=== PATIENT | female | born 1995 | race Caucasian/White ===

== ENCOUNTER 2018-01-21 11:28 | Emergency (ER) | payer MEDICAID, SELFPAY ==
[2018-01-21] VITALS (11 sets, daily range): BP systolic 101–132; BP diastolic 61–75; PULSE 73–96; RESP 11–18; TEMP 37–37.1; O2SAT 95–100
--- NOTE | 2018-01-21 11:42 | ED.GENADUL ---
Disposition Clinical Impression: Dizziness, Nausea, First trimester Disposition: HOME Condition: Good Instructions: Acute Nausea and Vomiting (ED), Dizziness (ED) Additional Instructions: Drink plenty of fluids and get plenty of rest. Be sure to eat carbs with protein such as peanut butter and toast. Take the anti-nausea medicine as needed and directed. Be sure to wait 20-30 minutes after you take the medication before eating to allow the medication time to work. Follow-up with your scheduled appointment for your first OB ultrasound on 02/01/18 at 7:00 AM in the radiology department. Be sure to arrive 15 minutes early. Follow-up with your scheduled appointment in women's wellness on 02/15/18 at 9:20 AM. Return to the emergency department with any worsening or new concerning symptoms. Prescriptions: Doxylamine/Pyridoxine HCl [Anson Jasmine 10-10 mg Tablet] 1 each PO DIRECTED PRN #12 tablet. PRN Reason: Forms: Work Release Medical Decision Making - Lab Data test positive Laboratory Tests 01/21/18 01/21/18 01/21/18 11:45 11:45 12:22 WBC 8.80 RBC 4.56 Hgb 14.0 Hct 40.0 MCV 87.7 MCH 30.7 MCHC 35.0 RDW 12.4 Plt Count 323 MPV 9.7 Immature Gran % 0.1 Neutrophils % 69.6 Lymphocytes % 24.7 Monocytes % 4.8 Eosinophils % 0.5 Basophils % 0.3 Absolute Neutrophils 6.13 Absolute Lymphocytes 2.17 Absolute Monocytes 0.42 Absolute Eosinophils 0.04 Absolute Basophils 0.03 Sodium 136 Potassium 3.8 Chloride 100 Carbon Dioxide 26.5 Anion Gap 9.5 BUN 7 Creatinine 0.66 Estimated GFR/1.73 m2 >= 60.00 Glucose 83 Calcium 9.6 Total Bilirubin 1.1 H AST 16 ALT 17 Alkaline Phosphatase 102 Total Protein 7.8 Albumin 4.2 Urine Color Yellow Urine Clarity Clear Urine pH 6.0 Ur Specific [place] 1.015 Urine Protein Negative Urine Ketones 40 H Urine Blood Negative Urine Nitrite Negative Urine Bilirubin Negative Urine Urobilinogen 0.2 Ur Leukocyte Esterase Trace H Urine RBC 0-2 Urine WBC 3-5 Ur Epithelial Cells Few Urine Crystals Negative Urine Bacteria Rare Urine Casts Negative Urine Mucus Trace Ur Culture Indicated? No Urine Glucose Negative - Medical Decision Making 1130 -- 22-year-old female with previous miscarriage 3 months ago who is currently 7 1/7 weeks per LMP 12/02/17 who presents with lightheadedness and nausea this morning. Has been taking good p.o. Denies vomiting, abdominal pain or vaginal bleeding. Has not had an US and has not yet established care with OB for this but plans to go here. Vitals within normal limits. EKG negative for acute findings. No focal deficits and she is laughing and joking room with friend and appears in no acute distress. As she has no abdominal pain and vaginal bleeding, no further indication for workup for ectopic at this time. We will place an IV, bolus IV fluids, labs, urinalysis, urine and give a dose of Reglan. 1245 -- Pt feels better. Denies nausea. Still with some dizziness. Will give another liter IVF. Labs reviewed and negative. Urinalysis notes 3-5 WBCs, trace leukocyte esterase but rare bacteria and no nitrates. In , indication is to treat for asymptomatic bacteriuria but as there is rare bacteria on urinalysis, will send urine culture and hold on antibiotics at this time. 1320 -- patient feels much better. Denies any symptoms at this time. Patient was able to drink water and eat crackers and feels better and no further nausea or dizziness. Patient feels good to go home. Appointment was made with OB for ultrasound on 02/01/18 and with women's wellness on 02/15/18. Patient given prescription for diclegis to help with nausea and vomiting. She is instructed to drink plenty of fluids and get plenty of rest and to return to the ER with any concerns. History of Present Illness - General Chief complaint: Dizzy/Sync Stated complaint: DIZZY Time Seen by Provider: 01/21/18 11:28 Source: patient Mode of arrival: ambulatory Limitations: no limitations - History of Present Illness Initial comments: Patient is a 22-year-old female with one previous miscarriage 3 months ago and currently 7 1/7 weeks per LMP on 12/02/17 who presents with lightheadedness and nausea since this morning. Patient states she found that she is 1 week ago and has had nausea and occasionally vomiting in the morning since then. Denies any vomiting this morning. Patient states she has been eating and drinking normally. She denies spinning sensation, headache, blurry vision, tinnitus, ear pain, chest pain, shortness of breath, abdominal pain or vaginal bleeding. She has not yet started care with OB for this and has not yet had an ultrasound yet. - Related Data Doxylamine/Pyridoxine HCl [Diclegis 10-10 mg Tablet] 1 each PO DIRECTED PRN #12 tablet. 01/21/18 Pnv95/Ferrous Fumarate/FA [ Formula Tablet] 1 each PO DAILY 01/21/18 Allergies Allergy/AdvReac Type Severity Reaction Status Date / Time No Known Allergies Allergy Unverified 01/21/18 11:45 Review of Systems Constitutional: denies: chills, fever Eyes: denies: eye pain ENT: denies: ear pain, throat pain, dental pain Respiratory: denies: cough, shortness of breath Cardiovascular: denies: chest pain, dyspnea on exertion Gastrointestinal: nausea. denies: abdominal pain, vomiting, diarrhea Genitourinary: denies: urgency, dysuria, frequency Musculoskeletal: denies: back pain Skin: denies: rash, lesions Neurological: other (dizziness). denies: headache, weakness, numbness, paresthesias Past Medical History - Past Medical History Medical history: no medical history Surgical history: no surgical history - Social History Smoking status: former smoker Alcohol use: none Drug use: none General Exam - General Limitations: no limitations General appearance: alert, in no apparent distress - Eye Eye exam: Present: PERRL, EOMI - ENT ENT exam: Present: normal orophraynx, mucous membranes moist - Neck Neck exam: Present: normal inspection - Respiratory Respiratory exam: Absent: respiratory distress - Cardiovascular Cardiovascular Exam: Present: regular rate, normal rhythm. Absent: bradycardia, tachycardia - GI/Abdominal GI/Abdominal exam: Present: soft, normal bowel sounds. Absent: distended, tenderness, guarding, rebound, rigid - Extremities Exam Extremities exam: Present: full ROM - Back Exam Back exam: Present: normal inspection. Absent: CVA tenderness (R), CVA tenderness (L) - Neurological Exam Neurological exam: Present: alert, oriented X3, CN II-XII intact, other (MS 5/5 b/l UE/LE). Absent: motor sensory deficit - Psychiatric Psychiatric exam: Present: normal affect - Skin Skin exam: Present: warm, dry, intact
[2018-01-21] MEDS: Metoclopramide 10 MG/2 ML VIAL IVP (11:58)
[2018-01-21] MEDS: Normal Saline 1,000 ML 1000 ML IV ×2 (11:58→12:51)
[2018-01-21 12:05] LABS: Abs Immature Grans 0.01 k/cumm (0.0-0.09); Absolute Basophil Count 0.03 k/cumm (0.0-0.2); Absolute Eosinophil Count 0.04 k/cumm (0.0-0.7); Absolute Lymphocyte Count 2.17 k/cumm (1.2-3.4); Absolute Monocyte Count 0.42 k/cumm (0.11-0.7); Absolute Neutrophil Count 6.13 k/cumm (1.2-6.7); Basophils % 0.3; Eosinophils % 0.5; Immature Grans % 0.1; Lymphocytes % 24.7; Mean Corpuscular Hemoglobin 30.7 pg (27.0-33.0); Mean Corpuscular Volume 87.7 fL (80-95); Mean Platelet Volume 9.7 fL (8.0-11.0); Monocytes % 4.8; Neutrophils % 69.6; Platelet Count 323 x1000/uL (130-400); RBC 4.56 m/cumm (4.00-5.20); RBC Distribution Width 12.4 % (11.7-14.6)
[2018-01-21 12:06] LABS: ALT 17 U/L (12-78); AST 16 U/L (15-37); Albumin 4.2 g/dL (3.4-5.0); Alkaline Phosphatase 102 U/L (46-116); Anion Gap 9.5 mmol/L (3-11); BUN 7 mg/dL (7-18); Bilirubin, Total 1.1 mg/dL (0.2-1.0); CO2 26.5 mmol/L (21.0-32.0); CREATININE 0.66 mg/dL (0.55-1.02); Calcium 9.6 mg/dL (8.5-10.1); Chloride 100 mmol/L (98-107); Glucose 83 mg/dL (70-100); Potassium 3.8 mmol/L (3.5-5.1); Sodium 136 mmol/L (136-145); Total Protein 7.8 g/dL (6.4-8.2)
[2018-01-21 12:31] LABS: Bilirubin Negative (Negative); Blood Negative (Negative); Clarity Clear; Glucose Negative (Negative); Ketones 40 mg/dL (Negative); Leukocyte Esterase Trace (Negative); Nitrite Negative (Negative); Specific Gravity 1.015 (1.005-1.025); Urobilinogen 0.2 EU/dL (Up TO 0.2)
[2018-01-21 12:39] LABS: RBC 0-2 (0-2)
[2018-01-21 12:40] LABS: Bacteria Rare HPF (Negative); C & S Indicated? No; Casts Negative LPF (Negative); Crystals Negative HPF (Negative); Epithelial Cells Few HPF (Negative); Mucus Trace (Negative)
--- NOTE | 2018-01-21 13:43 | NUR.NOTE ---
Nursing Note: Patient appointments: Radiology US @ 7am arrive @ 6:45am. Women's Wellness @ 9:20am for 1 to 1 1/2 hr long. The patient was given an OB US instruction sheet for prior to the exam. Nandini Cooper.
== END 2018-01-21 13:27 | disposition home or self-care (01) ==
PROVIDERS: Emergency Provider Physician Assistant
DX: R42 Dizziness and giddiness (principal); R11.0 Nausea; Z3A.01 Less than 8 weeks gestation of pregnancy
CPT/HCPCS: 80053; 81025; 93005; 96361; 96374; 99285; 81003; 81015; 85025; 87086; 93010; J2765

== ENCOUNTER 2018-02-01 01:21 | Outpatient (CLI) | payer MEDICAID, SELFPAY ==
--- NOTE | 2018-02-01 06:48 | DI.REPORT_ITS ---
Many abnormalities cannot be diagnosed. A normal exam does not exclude a congenital anomaly. Radiology No. LMP: 12/02/17 Exam Date: 02/01/18 [facility] [place] wks days on EDC ([facility] [place]) Confirmed: HISTORY: DATING, Z32.01 ---- PREDICTED GESTATIONAL AGE NUMBER 8.5 weeks with a range of week to weeks. 1 Determined by___1STUS__X_LMP___HISTORY Info. pertaining to fetus # PLACENTA PRESENTATION Grade Cephalic___ Anterior___Posterior___ Breech____ Right Left Transverse(head right___ Fundal___Low-lying___Previa___ Transverse(head left___ Varying BIOMETRY AMNIOTIC FLUID BPD: mm weeks Normal HC: mm weeks AC: mm weeks FL: mm weeks AMNIOTIC FLUID INDEX >26 WK CRL: 11 mm 7.2 weeks Cisterna Magna: mm CI: RUQ: LUQ Cerebellum: cm EFW: grams Percentile RLQ: LLQ Total: cms Composite AGE= 7.2 wks EDC by US 09/18/18 BIOPHYSICAL PROFILE ANATOMY IDENTIFIED SCORE 0/2 Heart: 4-Chamber___Rate:BPM___158__ LVOT: RVOT: Amniotic Fluid(>2cms)____ Stomach: Kidneys: Respirations (>30 secs) Bladder: Post. Fossa: Body Flex/Extension 3 vessel cord: Ventricles: cord insertion: Lips:____ Extremity Flex/Extension spinal morphology: Nose: Total Score= Palate: NS=not seen There is a single living intrauterine gestation. Estimated sonographic age is 7 weeks 2 days. The yolk sac was visualized. heart rate is 158 beats per minute. There does appear to be a fence of chorionic hemorrhage adjacent to the gestational sac. The ovaries are grossly unremarkable. Note is made of a trace amount of free fluid adjacent to the left ovary. IMPRESSION: Single living intrauterine gestation. Estimated sonographic age is 7 weeks 2 days. Small subchorionic hemorrhage associated with the gestation is noted.
== END 2018-02-01 01:22 ==
PROVIDERS: Visit Provider Nurse Practitioner Women's Health
DX: Z34.81 Encounter for supervision of other normal pregnancy, first trimester (principal); Z32.01 Encounter for pregnancy test, result positive
CPT/HCPCS: 76817

== ENCOUNTER 2018-02-15 11:14 | Outpatient (CLI) | payer MEDICAID, SELFPAY ==
[2018-02-15 12:22] LABS: Abs Immature Grans 0.02 k/cumm (0.0-0.09); Absolute Basophil Count 0.09 k/cumm (0.0-0.2); Absolute Eosinophil Count 0.11 k/cumm (0.0-0.7); Absolute Lymphocyte Count 1.76 k/cumm (1.2-3.4); Absolute Monocyte Count 0.42 k/cumm (0.11-0.7); Absolute Neutrophil Count 5.77 k/cumm (1.2-6.7); Basophils % 1.1; Eosinophils % 1.3; HGB 13.1 g/dL (12.0-15.5); Immature Grans % 0.2; Lymphocytes % 21.5; Mean Corp. HGB Concentration 34.5 g/dL (32.0-36.0); Mean Corpuscular Hemoglobin 30.1 pg (27.0-33.0); Mean Corpuscular Volume 87.4 fL (80-95); Mean Platelet Volume 10.3 fL (8.0-11.0); Monocytes % 5.1; Neutrophils % 70.8; Platelet Count 296 x1000/uL (130-400); RBC 4.35 m/cumm (4.00-5.20); White Blood Cell Count 8.17 k/cumm (4.4-10.8)
[2018-02-15 13:01] LABS: TSH (W/Ref FT4) 0.54 uIU/mL (0.358-3.74)
[2018-02-16 10:24] LABS: Hepatitis C Ab w Rflx HCV PCR Negative (NEGAT)
[2018-02-16 10:25] LABS: HIV-1/2 Ag & Ab Screen Negative (NEGAT)
[2018-02-16 10:56] LABS: Hepatitis B Surface Ag Negative (NEGAT)
[2018-02-16 13:53] LABS: Rubella IgG Ab (UVM) Negative; Syphilis Serology (RPR) Negative (Negative); Varicella IgG Antibody Negative
== END 2018-02-15 11:34 ==
PROVIDERS: Visit Provider Advanced Practice Midwife
DX: Z34.91 Encounter for supervision of normal pregnancy, unspecified, first trimester (principal)
CPT/HCPCS: 36415; 80055; 86787; 86803; 86850; 86900; 86901; 87340; 84443; 86592; 86762

== ENCOUNTER 2018-02-15 13:52 | Outpatient (REF) | payer MEDICAID, SELFPAY ==
--- NOTE | 2018-02-15 10:50 | PAPFT_PTH ---
PATIENT: KEYANA BURNS LOC: POOL U#:[id number] AGE/SX: 22/F ROOM: RE02/15/[address]: Donato Arredondo RN : 1995 BED: DIS: 02/15/2018 SPEC #: [id number] RECD: 02/15/18 18:21 STATUS: JONAS REQ #: [id number] SIMON: 02/15/18 10:[address]: Donato Arredondo DEPT: [facility] Cytology RECD BY: Aleshia Goode ENTERED: 02/15/18 18:21 SP TYPE: PAPFT OTHR DR: None Tissues: 1 - CX/ENDOCX FOR PAP SMEARS Procedures: PAP THIN PREP/UVM Screening Comments: [id number]
[2018-02-15 15:31] LABS: *AMPHETAMINES SCREEN URINE Negative (Negative); *BARBITURATES SCREEN URINE Negative (Negative); *BENZODIAZEPINES SCREEN URINE Negative (Negative); Cannabinoids THC POSITIVE (Negative); Cocaine Screen,Urine Negative (Negative); METHADONE URINE SCREEN Negative (Negative); OPIATES URINE SCREEN Negative (Negative)
[2018-02-15 15:40] LABS: Tricyclic Antidepressants Negative (Negative)
[2018-02-16 14:18] LABS: Chlamydia Result Negative; GC Result Negative; Specimen Description CERVIX
[2018-02-18 11:06] LABS: Buprenorphine Negative; Norbuprenorphine Negative
== END 2018-02-15 14:12 ==
LOC: LBN 13:52
PROVIDERS: Visit Provider Advanced Practice Midwife
DX: Z34.91 Encounter for supervision of normal pregnancy, unspecified, first trimester (principal); Z11.3 Encounter for screening for infections with a predominantly sexual mode of transmission; Z12.4 Encounter for screening for malignant neoplasm of cervix
CPT/HCPCS: 80307; 87491; 87591; 88142; 87086

== ENCOUNTER 2018-02-24 12:28 | Emergency (ER) | payer MEDICAID, SELFPAY ==
[2018-02-24] VITALS (15 sets, daily range): BP systolic 90–114; BP diastolic 62–77; PULSE 75–90; RESP 16; TEMP 36.5–37.2; O2SAT 95–98
--- NOTE | 2018-02-24 12:42 | W.ED.GENAD ---
Discharge Plan Disposition Patient Disposition: HOME Discharge Details Chief Complaint: Nausea/Vomit/Diar Clinical Impression: Nausea and vomiting during Primary Care Provider: NONE,NONE ED Provider: Mir Fuller Home Meds and New Rx's Prescriptions: Continue ranitidine HCl [Zantac] 150 mg tablet 150 mg PO BID Qty: 60 RF: 1 metoclopramide HCl [Reglan] 10 mg tablet 10 mg PO TID PRN (Reason: nausea and vomiting) Qty: 30 RF: 1 ondansetron [Zofran ODT] 4 MG tablet,disintegrating 4 mg PO Q8H PRN 7 Days Qty: 21 RF: 2 PNV cmb#95-ferrous fumarate-FA [ Formula] 1 EACH tablet 1 ea PO DAILY RF: 0 Changed doxylamine-pyridoxine (vit B6) [Diclegis] 1 EACH tablet,delayed release (DR/EC) 1 tab PO DIRECTED Qty: 30 RF: 1 Discharge Instructions Instructions: Nausea and Vomiting in (ED) Discharge Data Discharge Physician: Mir Fuller Medical Decision Making MDM Narrative Medical decision making narrative: 22 yo at 11 weeks who has had confirmatory u/s showing live iup, comes in with n/v/d since around 5am today. She states she has had nausea this whole but today has had constant vomit when trying to drink anything and tried taking oral zofran at her it applications developer's advise but threw this up as well. Also notes loose stools, denies fevers or abd pain, no recent travel or abx. Has no abdominal tenderness or distention on exam. I suspect hyperemesis, will eval for electrolyte abnormalities and does appear dehydrated, based on uptodate guidelines will start with zofran and reassess. pt's labs unremarkable, no vomit here. Will have her start diclegis and she has zofran at home, advised f/u with her ob provider and return precautions given Differential Diagnosis hyperemesis gravidum, dehydration Lab Data Lab results reviewed: Yes I reviewed the patient's lab results. HPI General Mode of arrival: ambulatory. Date/Time Provider Initiated Documentation: 02/24/18 12:28. Limitations to Documentation: no limitations. Information obtained by: patient. History of Present Illness 22 year old F presents to the emergency department with the chief complaint of nausea and vomit, described as moderate, with intensity rated at 6. Patient started experiencing this hour(s) (7) and it has been constant. No relieving factors improve symptom(s), No exacerbating factors reported . Patient notes other (diarrhea). Patient did receive the following treatments prior to arrival, none Related Data Home Medications Medication Instructions Recorded Confirmed PNV cmb#95-ferrous fumarate-FA 1 ea PO DAILY 01/21/18 02/24/18 [ Formula] Previous Rx's Medication Instructions Recorded ondansetron [Zofran ODT] 4 mg PO Q8H PRN 7 Days #21 tab 01/26/18 metoclopramide 10 mg tablet 10 mg PO TID PRN #30 tab 02/15/18 ranitidine 150 mg tablet 150 mg PO BID #60 tab 02/15/18 doxylamine-pyridoxine (vit B6) 1 tab PO DIRECTED #30 tab-cap 02/24/18 [Diclegis] Allergies Allergy/AdvReac Type Severity Reaction Status Date / Time No Known Allergies Allergy Unverified 02/15/18 09:34 General Stated Complaint: Nausea/Vomit/Diar JOSE: 3 Review of Systems Review of Systems All systems reviewed & are unremarkable except as noted in HPI and below Constitutional Denies chills, Denies fever(s) and Denies weakness Eyes Patient Denies loss of vision ENT Denies change in voice Cardiovascular Denies chest pain and Denies dyspnea Respiratory Denies dyspnea Gastrointestinal Denies abdominal pain Genitourinary Denies dysuria Musculoskeletal Denies joint swelling Integumentary/Breasts Denies rash Neurologic Denies loss of vision and Denies weakness Psychiatric Denies depression Endocrine Denies cold intolerance and Denies heat intolerance Allergic/Immunologic Reports urticaria PFSH Family History Mother Ovarian cancer Sister Glaucoma Seizure disorder Medical History Vision disorder (Acute) Social History adopted: Yes lives independently: No (lives w/ partner finn ferrer) number of children: 1 current occupational status: unemployed Smoking/Tobacco Use Status: Former Tobacco Use passive smoking exposure: No alcohol intake: former counseling given: No details: stopped w/ knowledge of substance use type: former substance user Surgical History [place] teeth extracted (Acute) Exam Const General: no acute distress Orientation: alert HENNH Head: normal to inspection Ears: external ears normal General nose exam: external nose normal Mouth: moist mucous membranes Eyes General: appearance normal, both eyes and all related structures Neck Neck: normal visual inspection Resp Effort & Inspection: normal respiratory effort and able to speak in complete sentences Cardio Rate: regular rate GI Inspection: normal to inspection Palpation: soft, not firm and no guarding Skin General skin exam: no rashes or lesions noted Neuro General: alert and oriented x3 Extrem General: normal to inspection Psych Mental Status: mental status grossly normal Course Vital Signs Temperature 36.5 C 02/24/18 12:32 Pulse 90 02/24/18 12:32 Respiratory Rate 16 02/24/18 12:32 Blood Pressure 114/77 02/24/18 12:32 Pulse Oximetry 96 02/24/18 12:32 Temperature 36.5 C 02/24/18 12:32 Pulse 90 02/24/18 12:32 Respiratory Rate 16 02/24/18 12:32 Blood Pressure 114/77 02/24/18 12:32 Pulse Oximetry 96 02/24/18 12:32
--- NOTE | 2018-02-24 12:45 | ED.GENADUL_ITS ---
Discharge Plan Disposition Patient Disposition: HOME Discharge Details Chief Complaint: Nausea/Vomit/Diar Clinical Impression: Nausea and vomiting during Primary Care Provider: NONE,NONE ED Provider: Mir Fuller Home Meds and New Rx's Prescriptions: Continue ranitidine HCl [Zantac] 150 mg tablet 150 mg PO BID Qty: 60 RF: 1 metoclopramide HCl [Reglan] 10 mg tablet 10 mg PO TID PRN (Reason: nausea and vomiting) Qty: 30 RF: 1 ondansetron [Zofran ODT] 4 MG tablet,disintegrating 4 mg PO Q8H PRN 7 Days Qty: 21 RF: 2 PNV cmb#95-ferrous fumarate-FA [ Formula] 1 EACH tablet 1 ea PO DAILY RF: 0 Changed doxylamine-pyridoxine (vit B6) [Diclegis] 1 EACH tablet,delayed release (DR/EC ) 1 tab PO DIRECTED Qty: 30 RF: 1 Discharge Instructions Instructions: Nausea and Vomiting in (ED) Discharge Data Discharge Physician: Mir Fuller Medical Decision Making MDM Narrative Medical decision making narrative: 22 yo at 11 weeks who has had confirmatory u/s showing live iup, comes in with n/v/d since around 5am today. She states she has had nausea this whole but today has had constant vomit when trying to drink anything and tried taking oral zofran at her director foundation' s advise but threw this up as well. Also notes loose stools, denies fevers or abd pain, no recent travel or abx. Has no abdominal tenderness or distention on exam. I suspect hyperemesis, will eval for electrolyte abnormalities and does appear dehydrated, based on uptodate guidelines will start with zofran and reassess. pt's labs unremarkable, no vomit here. Will have her start diclegis and she has zofran at home, advised f/u with her ob provider and return precautions given Differential Diagnosis hyperemesis gravidum, dehydration Lab Data Lab results reviewed: Yes I reviewed the patient's lab results. HPI General Mode of arrival: ambulatory . Date/Time Provider Initiated Documentation: 02/24/18 12:28 . Limitations to Documentation: no limitations . Information obtained by: patient . History of Present Illness 22 year old F presents to the emergency department with the chief complaint of nausea and vomit, described as moderate, with intensity rated at 6. Patient started experiencing this hour(s) (7) and it has been constant. No relieving factors improve symptom(s), No exacerbating factors reported . Patient notes other (diarrhea). Patient did receive the following treatments prior to arrival, none Related Data Home Medications Medication Instructions Recorded Confirmed PNV cmb#95-ferrous fumarate-FA 1 ea PO DAILY 01/21/18 02/24/18 [ Formula] Previous Rx's Medication Instructions Recorded ondansetron [Zofran ODT] 4 mg PO Q8H PRN 7 Days #21 tab 01/26/18 metoclopramide 10 mg tablet 10 mg PO TID PRN #30 tab 02/15/18 ranitidine 150 mg tablet 150 mg PO BID #60 tab 02/15/18 doxylamine-pyridoxine (vit B6) 1 tab PO DIRECTED #30 tab-cap 02/24/18 [Diclegis] Allergies Allergy/AdvReac Type Severity Reaction Status Date / Time No Known Allergies Allergy Unverified 02/15/18 09:34 General Stated Complaint: Nausea/Vomit/Diar JOSE: 3 Review of Systems Review of Systems All systems reviewed & are unremarkable except as noted in HPI and below Constitutional Denies chills, Denies fever(s) and Denies weakness Eyes Patient Denies loss of vision ENT Denies change in voice Cardiovascular Denies chest pain and Denies dyspnea Respiratory Denies dyspnea Gastrointestinal Denies abdominal pain Genitourinary Denies dysuria Musculoskeletal Denies joint swelling Integumentary/Breasts Denies rash Neurologic Denies loss of vision and Denies weakness Psychiatric Denies depression Endocrine Denies cold intolerance and Denies heat intolerance Allergic/Immunologic Reports urticaria PFSH Family History Mother Ovarian cancer Sister Glaucoma Seizure disorder Medical History Vision disorder (Acute) Social History adopted: Yes lives independently: No (lives w/ partner finn ferrer) number of children: 1 current occupational status: unemployed Smoking/Tobacco Use Status: Former Tobacco Use passive smoking exposure: No alcohol intake: former counseling given: No details: stopped w/ knowledge of substance use type: former substance user Surgical History [place] teeth extracted (Acute) Exam Const General: no acute distress Orientation: alert HENRI Head: normal to inspection Ears: external ears normal General nose exam: external nose normal Mouth: moist mucous membranes Eyes General: appearance normal, both eyes and all related structures Neck Neck: normal visual inspection Resp Effort & Inspection: normal respiratory effort and able to speak in complete sentences Cardio Rate: regular rate GI Inspection: normal to inspection Palpation: soft, not firm and no guarding Skin General skin exam: no rashes or lesions noted Neuro General: alert and oriented x3 Extrem General: normal to inspection Psych Mental Status: mental status grossly normal Course Vital Signs Temperature 36.5 C 02/24/18 12:32 Pulse 90 02/24/18 12:32 Respiratory Rate 16 02/24/18 12:32 Blood Pressure 114/77 02/24/18 12:32 Pulse Oximetry 96 02/24/18 12:32 Temperature 36.5 C 02/24/18 12:32 Pulse 90 02/24/18 12:32 Respiratory Rate 16 02/24/18 12:32 Blood Pressure 114/77 02/24/18 12:32 Pulse Oximetry 96 02/24/18 12:32
[2018-02-24] MEDS: Ondansetron 4 MG/2 ML VIAL IVP (12:54)
[2018-02-24] MEDS: Normal Saline 1,000 ML 1000 ML IV (12:55)
[2018-02-24 13:01] LABS: Abs Immature Grans 0.02 k/cumm (0.0-0.09); Absolute Basophil Count 0.02 k/cumm (0.0-0.2); Absolute Eosinophil Count 0.05 k/cumm (0.0-0.7); Absolute Lymphocyte Count 0.51 k/cumm (1.2-3.4); Absolute Monocyte Count 0.37 k/cumm (0.11-0.7); Absolute Neutrophil Count 7.32 k/cumm (1.2-6.7); Basophils % 0.2; Eosinophils % 0.6; HCT 41.1 % (36.0-46.0); HGB 14.1 g/dL (12.0-15.5); Immature Grans % 0.2; Lymphocytes % 6.2; Mean Corp. HGB Concentration 34.3 g/dL (32.0-36.0); Mean Corpuscular Hemoglobin 29.8 pg (27.0-33.0); Mean Corpuscular Volume 86.9 fL (80-95); Mean Platelet Volume 10.1 fL (8.0-11.0); Monocytes % 4.5; Neutrophils % 88.3; Platelet Count 280 x1000/uL (130-400); RBC 4.73 m/cumm (4.00-5.20); RBC Distribution Width 12.5 % (11.7-14.6); White Blood Cell Count 8.29 k/cumm (4.4-10.8)
[2018-02-24 13:26] LABS: ALT 28 U/L (12-78); AST 18 U/L (15-37); Albumin 3.8 g/dL (3.4-5.0); Alkaline Phosphatase 88 U/L (46-116); Anion Gap 10.3 mmol/L (3-11); BUN 9 mg/dL (7-18); CO2 23.7 mmol/L (21.0-32.0); CREATININE 0.55 mg/dL (0.55-1.02); Calcium 9.3 mg/dL (8.5-10.1); Chloride 102 mmol/L (98-107); Glucose 90 mg/dL (70-100); Magnesium 1.9 mg/dL (1.8-2.4); Potassium 3.8 mmol/L (3.5-5.1); Sodium 136 mmol/L (136-145); Total Protein 7.4 g/dL (6.4-8.2)
== END 2018-02-24 13:56 | disposition home or self-care (01) ==
PROVIDERS: Emergency Provider Emergency Medicine
DX: O21.9 Vomiting of pregnancy, unspecified (principal); Z3A.11 11 weeks gestation of pregnancy; O21.0 Mild hyperemesis gravidarum
CPT/HCPCS: 36415; 80053; 96361; 96374; 99284; 83735; 85025; J2405

== ENCOUNTER 2018-04-20 00:31 | Outpatient (CLI) | payer MEDICAID, SELFPAY ==
--- NOTE | 2018-04-20 10:13 | DI.US_ITS ---
SYMPTOMS/DIAGNOSIS: SURVEY, Z34.90 OB ULTRASOUND: OB ultrasound was performed utilizing second trimester protocol. The biometry is consistent with a gestational age of 18 weeks 6 days and an EDC of . The placenta is anterior with no evidence of placenta previa. There is a normal quantity of amniotic fluid. The anomaly screen is within normal limits as per the attached checklist. Many abnormalities cannot be diagnosed. A normal exam does not exclude a congenital anomaly. Radiology No. [id number] LMP: 12/12/17 Exam Date: 04/20/18 [facility] wks days on EDC ([facility]) 09/18/18 Confirmed: HISTORY: survey ---- PREDICTED GESTATIONAL AGE NUMBER 18+3 weeks with a range of 17+3 weeks to 19+3 weeks. 1 Determined by 1STUS X LMP___HISTORY Info. pertaining to fetus # PLACENTA PRESENTATION Grade II Cephalic___ Anterior X Posterior___ Breech____ Right Left Transverse(head right___ Fundal___Low-lying___Previa___ Transverse(head left___ Varying X BIOMETRY AMNIOTIC FLUID BPD: 42 mm 18+4 weeks Normal HC: 159 mm 18+5 weeks AC: 136 mm 19+1 weeks FL: 28 mm 18+5 weeks AMNIOTIC FLUID INDEX >26 WK CRL: mm weeks Cisterna Magna: 4.0 mm CI: 83 RUQ: LUQ Cerebellum: 1.8 cm EFW: 262 grams Percentile RLQ: LLQ Total: cms Composite AGE= 18+6 wks EDC by US 09/15/18 BIOPHYSICAL PROFILE ANATOMY IDENTIFIED SCORE 0/2 Heart: 4-Chamber X Rate: 152 BPM LVOT: X RVOT: X Amniotic Fluid(>2cms)____ Stomach: X Kidneys: X Respirations (>30 secs) Bladder: X Post. Fossa: X Body Flex/Extension 3 vessel cord: X Ventricles: X cord insertion: X Lips: X Extremity Flex/Extension spinal morphology: X Nose: X Total Score= Palate: X NS=not seen Comments: 5 mm choroid plexus cyst noted.
== END 2018-04-20 00:51 ==
PROVIDERS: Visit Provider Advanced Practice Midwife
DX: Z34.92 Encounter for supervision of normal pregnancy, unspecified, second trimester (principal)
CPT/HCPCS: 76805

== ENCOUNTER 2018-06-15 08:22 | Outpatient (CLI) | payer MEDICAID, SELFPAY ==
[2018-06-15 08:40] LABS: Glucose,1 Hr (Glucola) 121 mg/dL (80-140)
== END 2018-06-15 08:42 ==
PROVIDERS: Advanced Practice Midwife; PCP Nurse Practitioner Adult Health; Visit Provider Advanced Practice Midwife
DX: Z34.93 Encounter for supervision of normal pregnancy, unspecified, third trimester (principal)
CPT/HCPCS: 36415; 82950

== ENCOUNTER 2018-08-24 10:43 | Outpatient (REF) | payer MEDICAID, SELFPAY | END 2018-08-24 11:03 | LOC: LBN 10:43 | PROVIDERS: PCP Nurse Practitioner Adult Health; Visit Provider Advanced Practice Midwife | DX: Z34.93 Encounter for supervision of normal pregnancy, unspecified, third trimester (principal); Z36.85 Encounter for antenatal screening for Streptococcus B | CPT/HCPCS: 87081 ==

== ENCOUNTER 2018-08-31 01:46 | Outpatient (CLI) | payer MEDICAID, SELFPAY ==
--- NOTE | 2018-08-31 11:06 | DI.US_ITS ---
SYMPTOMS/DIAGNOSIS: SIZE < DATES, Z34.90 OB ULTRASOUND: Comparison is made with [id number]. The fetus is in cephalic position. The placenta is anterior. The biometric measurements correspond to 36 weeks 6 days which is at the lower limits of normal. The estimated weight is 3001 grams corresponding to the 33rd percentile. The amniotic fluid amount appears normal with ADONAY of 9.3. IMPRESSION: size and weight are within normal limits. Many abnormalities cannot be diagnosed. A normal exam does not exclude a congenital anomaly. Radiology No. [id number] LMP: Exam Date: 08/31/18 [facility] wks days on EDC ([facility]) 09/16/18 Confirmed: HISTORY: S < D PREDICTED GESTATIONAL AGE NUMBER 37+5 weeks with a range of 36+5 weeks to 38+5 weeks. 1 Determined by___1STUS___LMP___HISTORY Info. pertaining to fetus # PLACENTA PRESENTATION Grade II Cephalic X Anterior X Posterior___ Breech____ Right Left Transverse(head right___ Fundal___Low-lying___Previa___ Transverse(head left___ Varying BIOMETRY AMNIOTIC FLUID BPD: 91 mm 36+6 weeks Normal HC: 330 mm 37+4 weeks AC: 326 mm 36+4 weeks FL: 71 mm 36+4 weeks AMNIOTIC FLUID INDEX >26 WK CRL: mm weeks Cisterna Magna: mm CI: 83 RUQ: 0 LUQ: 4.9 Cerebellum: cm EFW: 3001 grams Percentile 33% RLQ: 1.8 LLQ: 2.6 (6# 10 oz) Total: 9.3 cms Composite AGE= 36+6 wks EDC by US 09/22/18 BIOPHYSICAL PROFILE ANATOMY IDENTIFIED SCORE 0/2 Heart: 4-Chamber___Rate: 144 BPM LVOT: RVOT: Amniotic Fluid(>2cms)____ Stomach: Kidneys: Respirations (>30 secs) Bladder: Post. Fossa: Body Flex/Extension 3 vessel cord: Ventricles: cord insertion: Lips:____ Extremity Flex/Extension spinal morphology: Nose: Total Score= Palate: NS=not seen
== END 2018-08-31 02:06 ==
PROVIDERS: PCP Nurse Practitioner Adult Health; Visit Provider Advanced Practice Midwife
DX: Z34.93 Encounter for supervision of normal pregnancy, unspecified, third trimester (principal); O26.843 Uterine size-date discrepancy, third trimester
CPT/HCPCS: 76816

== ENCOUNTER 2018-08-31 13:43 | Outpatient (CLI) | payer MEDICAID, SELFPAY | END 2018-08-31 14:03 | PROVIDERS: PCP Nurse Practitioner Adult Health; Visit Provider Advanced Practice Midwife | DX: O36.8330 Maternal care for abnormalities of the fetal heart rate or rhythm, third trimester, not applicable or unspecified (principal); Z3A.37 37 weeks gestation of pregnancy | CPT/HCPCS: 59025 ==

== ENCOUNTER 2018-09-02 15:13 | Outpatient (CLI) | payer MEDICAID, SELFPAY ==
[2018-09-02] MEDS: Ondansetron 4 MG TAB 8 MG PO (16:59)
[2018-09-02 22:35] LABS: HCT 33.9 % (36.0-46.0); HGB 11.8 g/dL (12.0-15.5); Mean Corp. HGB Concentration 34.8 g/dL (32.0-36.0); Mean Corpuscular Hemoglobin 31.7 pg (27.0-33.0); Mean Corpuscular Volume 91.1 fL (80-95); Platelet Count 218 x1000/uL (130-400); RBC 3.72 m/cumm (4.00-5.20); RBC Distribution Width 12.6 % (11.7-14.6); White Blood Cell Count 9.33 k/cumm (4.4-10.8)
== END 2018-09-02 15:33 ==
PROVIDERS: PCP Nurse Practitioner Adult Health; Visit Provider Advanced Practice Midwife
DX: O42.92 Full-term premature rupture of membranes, unspecified as to length of time between rupture and onset of labor (principal); Z3A.38 38 weeks gestation of pregnancy
CPT/HCPCS: 85027; 86850; 86900; 86901; 59025; J8597

== ENCOUNTER 2018-09-02 22:02 | Inpatient (IN) | payer MEDICAID, SELFPAY ==
[2018-09-02] MEDS: Lactated Ringers 1,000 ML 125 ML IV (22:47)
[2018-09-02] MEDS: Normal Saline Flush 10 ML SYR IVP (22:47)
[2018-09-03] MEDS: Normal Saline 100 ML 200 ML (03:48)
[2018-09-03] MEDS: Lactated Ringers 1,000 ML 125 ML IV (05:44)
--- NOTE | 2018-09-03 08:56 | W.PM.PROGNOT ---
Date of Service Date of service: 09/03/18 Time of Service: 08:56 Assessment and Plan (1) Prolonged rupture of membranes: Current visit: Yes Status: Acute The patient did have a forebag on her exam. Her last delivery was at term and was uncomplicated. I had a lengthy discussion with the patient and her mother regarding expectations during latent and active labor. My recommendation is to break forebag, hold pitocin for approximately one hour then restart. If the patient develops s/s of chorio I would recommend expedited delivery via section. If no progress through the day I would also recommend section. The patient has been counseled on the clinical significance of intraamniotic infection and risk to the baby. She is agreeable to the plan. All questions were answered. Subjective Interval history since last seen: I was asked to evaluate the patient. This is a 23 year old @37.6 weeks now with ROM greater than 36 hours. She reports only mild contractions. Pitocin at 30 mu/min. No significant change overnight. She denies fevers, chills, or abdominal pain. Currently on PCN for GBS. Objective Objective Clinical Data: Intake & Output 09/02/18 09/02/18 09/03/18 11:59 23:59 11:59 Intake Total 928.45 / 928.45 Balance 928.45 / 928.45 Intake: IV 928.45 / 928.45
[2018-09-03] MEDS: miSOPROStol 50 MCG TAB PO (10:55)
[2018-09-03] MEDS: Normal Saline Flush 10 ML SYR IVP (12:32)
[2018-09-03] MEDS: Acetaminophen 325 MG TAB 650 MG PO (20:30)
[2018-09-03] MEDS: Ibuprofen 600 MG TAB PO (20:30)
[2018-09-04] MEDS: Calcium Carbonate *TUMS* 500 MG CHEW PO (09:25)
[2018-09-04] MEDS: Acetaminophen 325 MG TAB 650 MG PO (10:08)
[2018-09-04 13:19] LABS: CREATININE 0.78 mg/dL (0.55-1.02)
[2018-09-04 13:26] LABS: ALT 12 U/L (12-78); AST 25 U/L (15-37); Albumin 2.4 g/dL (3.4-5.0); Alkaline Phosphatase 149 U/L (46-116); Bilirubin, Direct 0.14 mg/dL (0.00-0.20); Bilirubin, Total 0.8 mg/dL (0.2-1.0); Total Protein 5.5 g/dL (6.4-8.2)
[2018-09-04 13:31] LABS: Uric Acid 7.4 mg/dL (2.6-6.0)
[2018-09-04] MEDS: Ibuprofen 600 MG TAB PO ×2 (15:10→23:09)
[2018-09-04 16:41] LABS: HCT 33.5 % (36.0-46.0); HGB 11.4 g/dL (12.0-15.5); Mean Corpuscular Hemoglobin 31.3 pg (27.0-33.0); Mean Platelet Volume 10.8 fL (8.0-11.0); Platelet Count 214 x1000/uL (130-400); RBC 3.64 m/cumm (4.00-5.20); RBC Distribution Width 12.9 % (11.7-14.6); White Blood Cell Count 8.09 k/cumm (4.4-10.8)
== END 2018-09-05 13:15 | disposition home or self-care (01) | DRG 807 ==
PROVIDERS: Admitting Provider Advanced Practice Midwife; PCP Nurse Practitioner Adult Health; Visit Provider Advanced Practice Midwife
DX: O42.12 Full-term premature rupture of membranes, onset of labor more than 24 hours following rupture (principal); Z37.0 Single live birth; Z3A.38 38 weeks gestation of pregnancy; O63.0 Prolonged first stage (of labor); O62.4 Hypertonic, incoordinate, and prolonged uterine contractions; O69.81X0 Labor and delivery complicated by cord around neck, without compression, not applicable or unspecified; O13.5 Gestational [pregnancy-induced] hypertension without significant proteinuria, complicating the puerperium; O99.344 Other mental disorders complicating childbirth; F32.9 Major depressive disorder, single episode, unspecified; Z91.5 Personal history of self-harm
CPT/HCPCS: 36415; 80076; 85027; 99233; 82565; 84550; J2540; J3490

== ENCOUNTER 2018-11-02 18:50 | Emergency (ER) | payer MEDICAID, SELFPAY ==
[2018-11-02 18:55] VITALS: BP 117/91; PULSE 105; RESP 20; TEMP 36.6; O2SAT 98
--- NOTE | 2018-11-02 19:13 | W.ED.GENAD ---
Discharge Plan Disposition Patient Disposition: HOME Condition: Good Discharge Details Chief Complaint: Laceration Clinical Impression: Avulsion of fingertip Primary Care Provider: Unknown,Unknown ED Provider: Domonique Richardson Home Meds and New Rx's Prescriptions: Continued PNV cmb#95-ferrous fumarate-FA [ Formula] 1 EACH tablet 1 ea PO DAILY RF: 0 Discharge Instructions Instructions: Skin Avulsion (ED), Skin Adhesive Care (ED) Additional Instructions: Keep wound clean and dry. Monitor for signs of infection including redness, warmth, drainage, increased pain, fever/chills. If these or other new/worsening symptoms arise please seek care urgently once again. Allow adhesive to come off naturally, and apply any ointment over this area. Follow-up with primary care as needed. Discharge Data Discharge Date/Time-TO BE ENTERED AT DEPARTURE: 11/02/18 19:57 Medical Decision Making Patient is a [id number] 23-year-old female, accompanied by significant other, with chief complaint of laceration to the left index finger. She reports a prior to arrival she was peeling potatoes and she caught the tip of her finger with a product development and avulsed the distal tip of her finger. There is a 5 mm in circumference area of tissue missing. Areas actively bleeding. Patient is up-to-date on tetanus. Patient I discussed care options. Decided upon closed with adhesive. Digital block was performed using standard sterile technique with 1% lidocaine plain. 4 cc was used. Patient tolerated this well. The sufficiently anesthetized the area. Attention was then turned to the wound. Using a finger tourniquet, the wound was explored to its depth in a bloodless field no foreign body or debris noted. Wound was irrigated and applied over the avulsed segment. Patient tolerated this well. Discussed signs symptoms of infection when to seek care urgently once again. Discussed the care of the adhesive. All his questions and concerns were addressed and they are in agreement this plan. Patient is 2 months , not actively breast-feeding HPI General Mode of arrival: ambulatory. Date/Time Provider Initiated Documentation: 11/02/18 19:03. Limitations to Documentation: no limitations. Information obtained by: patient, family and RN notes reviewed. History of Present Illness 23 year old F presents to the emergency department with the chief complaint of left index fingertip avulsion, described as moderate, with intensity rated at 8. Quality is described as burning, and is localized to the left and upper extremity. Patient reports no radiation. Patient started experiencing this minute(s) and it has been constant. No relieving factors improve symptom(s), No exacerbating factors reported . Patient notes no other symptoms.. Patient did receive the following treatments prior to arrival, none Related Data Home Medications Medication Instructions Recorded Confirmed PNV cmb#95-ferrous fumarate-FA 1 ea PO DAILY 01/21/18 10/14/18 [ Formula] Allergies Allergy/AdvReac Type Severity Reaction Status Date / Time No Known Allergies Allergy Verified 10/14/18 13:16 General Stated Complaint: Laceration JOSE: 3 Review of Systems Constitutional Reports as per HPI, Denies chills and Denies fever(s) Musculoskeletal Reports as per HPI Integumentary/Breasts Reports as per HPI Neurologic Reports as per HPI, Denies sensory deficit and Denies paresthesias PFS Medical History History of tobacco abuse (Acute) Vision disorder (Acute) [place] teeth extracted (Acute) Social History Smoking/Tobacco Use Status: Former Tobacco Use Tobacco: How many years used: 10 Alcohol Intake: current Alcohol Intake frequency: a few times a month Counseling given: No Details: stopped w/ knowledge of Drug use: Current Sobriety Substance use type: former substance user Adopted: Yes Number of Children: 1 Sexually active: Yes Current gender identity: female Do you feel safe at home: Yes Do you feel safe in your relationship?: Yes Female Reproductive History Menstrual Age of Menarche: 13 Duration of menses: 3-5 days control method: implanted History History 3 Para 2 Hx # Term Pregnancies 2 Multiple births 0 Hx # Pregnancies 0 Ectopic pregnancies 0 AB induced 0 Hx Number of Living Children 2 AB spontaneous 1 Past Pregnancies Del. Date GA/Weeks # Outcome Route Wgt Sex Labor Lgth Anesthesia Location [facility] 08/10/14 41 Successful vaginal 3.289 kg Female 25 hours APD [facility] 09/03/18 38 No Successful vaginal 3.175 kg Male 45 hrs. 48 min. Carri Gordon CNM Delivery Date: 09/03/18 On 09/08/18 @ 08:04 Christina Hunter LPN premature rupture of membranes prolonged ruptured membranes Delivery Date: 08/10/14 On 04/20/18 @ 12:02 Carri Gordon stress d/t partner Exam Const General: cooperative, healthy appearing, comfortable, no acute distress and well developed Nutritional Appearance: average body habitus and well nourished Orientation: alert and awake Resp Effort & Inspection: normal respiratory effort, able to speak in complete sentences and no respiratory distress Cardio Rate: regular rate Rhythm: regular rhythm Skin Trauma: laceration (5mm circumfrencial fingertip avulsion left index finger) Neuro General: alert and awake Cognition: normal cognition Speech: speech normal Gait: normal gait Sensory Exam: no sensory deficits noted Extrem Left upper extremity: full ROM, normal capillary refill, no joint enlargement and hand Details: normal to inspection, normal capillary refill, neuromotor exam normal, neurosensory exam normal and tendon exam normal; abnormal to inspection (fingertip avulsion as above) Psych Appearance: grossly normal and well kempt Mental Status: mental status grossly normal Speech and Movement: speech and movement normal Course Vital Signs Temperature 36.6 C 11/02/18 18:55 Pulse 105 H 11/02/18 18:55 Respiratory Rate 20 11/02/18 18:55 Blood Pressure 117/91 H 11/02/18 18:55 Pulse Oximetry 98 11/02/18 18:55 Temperature 36.6 C 11/02/18 18:55 Temperature Source Tympanic 11/02/18 18:55 Pulse 105 H 11/02/18 18:55 Respiratory Rate 20 11/02/18 18:55 Respiratory Effort 11/02/18 19:02 Blood Pressure 117/91 H 11/02/18 18:55 Blood Pressure Position Sitting 11/02/18 18:55 Pulse Oximetry 98 11/02/18 18:55 Oxygen Delivery Method Room Air 11/02/18 18:55 Oxygen Flow Rate 0 11/02/18 18:55 Pain Level 8 11/02/18 18:55
--- NOTE | 2018-11-02 19:43 | ED.GENADUL_ITS ---
Discharge Plan Disposition Patient Disposition: HOME Condition: Good Discharge Details Chief Complaint: Laceration Clinical Impression: Avulsion of fingertip Primary Care Provider: Unknown,Unknown ED Provider: Domonique Richardson Home Meds and New Rx's Prescriptions: Continued PNV cmb#95-ferrous fumarate-FA [ Formula] 1 EACH tablet 1 ea PO DAILY RF: 0 Discharge Instructions Instructions: Skin Avulsion (ED), Skin Adhesive Care (ED) Additional Instructions: Keep wound clean and dry. Monitor for signs of infection including redness, warmth, drainage, increased pain, fever/chills. If these or other new/worsening symptoms arise please seek care urgently once again. Allow adhesive to come off naturally, and apply any ointment over this area. Follow-up with primary care as needed. Discharge Data Discharge Date/Time-TO BE ENTERED AT DEPARTURE: 11/02/18 19:57 Medical Decision Making Patient is a [id number] 23-year-old female, accompanied by significant other, with chief complaint of laceration to the left index finger. She reports a prior to arrival she was peeling potatoes and she caught the tip of her finger with a cook helper meat and avulsed the distal tip of her finger. There is a 5 mm in circumference area of tissue missing. Areas actively bleeding. Patient is up-to-date on tetanus. Patient I discussed care options. Decided upon closed with adhesive. Digital block was performed using standard sterile technique with 1% lidocaine plain. 4 cc was used. Patient tolerated this well. The sufficiently anesthetized the area. Attention was then turned to the wound. Using a finger tourniquet, the wound was explored to its depth in a bloodless field no foreign body or debris noted. Wound was irrigated and applied over the avulsed segment. Patient tolerated this well. Discussed signs symptoms of infection when to seek care urgently once again. Discussed the care of the adhesive. All his questions and concerns were addressed and they are in agreement this plan. Patient is 2 months , not actively breast-feeding HPI General Mode of arrival: ambulatory . Date/Time Provider Initiated Documentation: 11/02/18 19:03 . Limitations to Documentation: no limitations . Information obtained by: patient, family and RN notes reviewed . History of Present Illness 23 year old F presents to the emergency department with the chief complaint of left index fingertip avulsion, described as moderate, with intensity rated at 8. Quality is described as burning, and is localized to the left and upper extremity. Patient reports no radiation. Patient started experiencing this minute(s) and it has been constant. No relieving factors improve symptom(s), No exacerbating factors reported . Patient notes no other symptoms.. Patient did receive the following treatments prior to arrival, none Related Data Home Medications Medication Instructions Recorded Confirmed PNV cmb#95-ferrous fumarate-FA 1 ea PO DAILY 01/21/18 10/14/18 [ Formula] Allergies Allergy/AdvReac Type Severity Reaction Status Date / Time No Known Allergies Allergy Verified 10/14/18 13:16 General Stated Complaint: Laceration JOSE: 3 Review of Systems Constitutional Reports as per HPI, Denies chills and Denies fever(s) Musculoskeletal Reports as per HPI Integumentary/Breasts Reports as per HPI Neurologic Reports as per HPI, Denies sensory deficit and Denies paresthesias PFS Medical History History of tobacco abuse (Acute) Vision disorder (Acute) [place] teeth extracted (Acute) Social History Smoking/Tobacco Use Status: Former Tobacco Use Tobacco: How many years used: 10 Alcohol Intake: current Alcohol Intake frequency: a few times a month Counseling given: No Details: stopped w/ knowledge of Drug use: Current Sobriety Substance use type: former substance user Adopted: Yes Number of Children: 1 Sexually active: Yes Current gender identity: female Do you feel safe at home: Yes Do you feel safe in your relationship?: Yes Female Reproductive History Menstrual Age of Menarche: 13 Duration of menses: 3-5 days control method: implanted History History 3 Para 2 Hx # Term Pregnancies 2 Multiple births 0 Hx # Pregnancies 0 Ectopic pregnancies 0 AB induced 0 Hx Number of Living Children 2 AB spontaneous 1 Past Pregnancies Del. Date GA/Weeks # Outcome Route Wgt Sex Labor Lgth Anesthesia Location [facility] 08/10/14 41 Successful vaginal 3.289 kg Female [address] [facility] 09/03/18 38 No Successful vaginal 3.175 kg Male 45 hrs. 48 min. Carri Gordon CNM Delivery Date: 09/03/18 On 09/08/18 @ 08:04 Chirstina Hunter LPN premature rupture of membranes prolonged ruptured membranes Delivery Date: 08/10/14 On 04/20/18 @ 12:02 Carri Gordon stress d/t partner Exam Const General: cooperative, healthy appearing, comfortable, no acute distress and well developed Nutritional Appearance: average body habitus and well nourished Orientation: alert and awake Resp Effort & Inspection: normal respiratory effort, able to speak in complete sentences and no respiratory distress Cardio Rate: regular rate Rhythm: regular rhythm Skin Trauma: laceration (5mm circumfrencial fingertip avulsion left index finger) Neuro General: alert and awake Cognition: normal cognition Speech: speech normal Gait: normal gait Sensory Exam: no sensory deficits noted Extrem Left upper extremity: full ROM, normal capillary refill, no joint enlargement and hand Details: normal to inspection, normal capillary refill, neuromotor exam normal, neurosensory exam normal and tendon exam normal; abnormal to inspection (fingertip avulsion as above) Psych Appearance: grossly normal and well kempt Mental Status: mental status grossly normal Speech and Movement: speech and movement normal Course Vital Signs Temperature 36.6 C 11/02/18 18:55 Pulse 105 H 11/02/18 18:55 Respiratory Rate 20 11/02/18 18:55 Blood Pressure 117/91 H 11/02/18 18:55 Pulse Oximetry 98 11/02/18 18:55 Temperature 36.6 C 11/02/18 18:55 Temperature Source Tympanic 11/02/18 18:55 Pulse 105 H 11/02/18 18:55 Respiratory Rate 20 11/02/18 18:55 Respiratory Effort 11/02/18 19:02 Blood Pressure 117/91 H 11/02/18 18:55 Blood Pressure Position Sitting 11/02/18 18:55 Pulse Oximetry 98 11/02/18 18:55 Oxygen Delivery Method Room Air 11/02/18 18:55 Oxygen Flow Rate 0 11/02/18 18:55 Pain Level 8 11/02/18 18:55
== END 2018-11-02 19:57 | disposition home or self-care (01) ==
PROVIDERS: Emergency Provider Physician Assistant
DX: S61.211A Laceration without foreign body of left index finger without damage to nail, initial encounter (principal); W45.8XXA Other foreign body or object entering through skin, initial encounter
CPT/HCPCS: 12001